=== PATIENT | male | born 1990 | race Asian ===

== ENCOUNTER 2019-11-15 05:30 | Emergency (ER) | payer MEDICAID ==
[~2019-11-15] VITALS: Ht 175.3 cm; Wt 68.5 kg
[2019-11-15 05:37] VITALS: BP 143/83
[2019-11-15] MEDS ORDERED: ONDANSETRON 4 MG/2 ML VIAL IVP ONE ×2 (05:50→06:00)
[2019-11-15] MEDS ORDERED: NACL 0.9% 1,000 ML IV ONE (05:50)
--- NOTE | 2019-11-15 06:00 | NUR ---
PT HAS BEEN HAVING ABD PAIN, N/V/D X 1 WEEK. C/O ABD CRAMPING AND ACHING 11/14, AND HAS HAD NO APPETITE. PT JUST MOVED HERE A WEEK AGO FROM [place] AND SAYS EVER SINCE BEING HERE HE'S BEEN FEELING SICK. PT AFEBRILE, NO SOB, NO COUGH. ABD FLAT, BOWELS SOUNDS WNL. NKA NO HX
[2019-11-15] MEDS ORDERED: MORPHINE SULFATE 4 MG/ML SYR ONE (06:04)
[2019-11-15] MEDS ORDERED: MORPHINE SULFATE 2 MG/ML SYR IVP ONE (06:15)
--- NOTE | 2019-11-15 06:15 | NUR ---
PT ADVISED WE NEED URINE SPECIMEN, UNABLE TO PROVIDE ONE AT THIS TIME. SPECIMEN CUP AT BEDSIDE
[2019-11-15 06:28] LABS: BASOPHILS # (AUTO) 0.1 K/uL (0.00-0.22); BASOPHILS % (AUTO) 0.4 % (0.0-2.0); EOSINOPHILS # (AUTO) 0.1 K/uL (0-0.4); EOSINOPHILS % (AUTO) 0.6 % (0.0-4.0); HEMATOCRIT 40.8 % (36-52); HEMOGLOBIN 13.9 g/dL (12.0-18.0); LYMPHOCYTES # (AUTO) 3.4 K/uL (2.0-11.5); LYMPHOCYTES % (AUTO) 26.3 % (20.5-51.1); MEAN CORPUSCULAR HEMOGLOBIN 29 pg (27-31); MEAN CORPUSCULAR HGB CONC 34 g/dL (33-37); MEAN CORPUSCULAR VOLUME 84.7 fL (80-94); MONOCYTES # (AUTO) 1.4 K/uL (0.8-1.0); MONOCYTES % (AUTO) 10.7 % (1.7-9.3); NEUTROPHILS # (AUTO) 7.9 K/uL (1.8-7.7); PLATELET COUNT (AUTO) 249 K/uL (140-450); RED BLOOD CELL COUNT(AUTO) 4.81 MIL/uL (4.20-6.10); RED CELL DISTRIBUTION WIDTH 13.1 % (11.6-13.7); WHITE BLOOD COUNT (AUTO) 12.7 K/uL (4.8-10.8)
--- NOTE | 2019-11-15 06:29 | NUR ---
IV ESTABLISHED, LABS COLLECTED AND WALKED DOWN TO LAB
--- NOTE | 2019-11-15 06:58 | NUR ---
1 L NS FINISHED INFUSING, PT STILL UNABLE TO PROVIDE UA. NOTIFIED
--- NOTE | 2019-11-15 06:58 | NUR ---
CALLED LAB REGARDING CHEMISTRY PANEL RESULTS, STATED THEY ARE RUNNING NOW AND RESULTS SHOULD BE UP IN FEW MINUTES.
[2019-11-15 07:05] LABS: ALBUMIN 4.4 g/dL (3.4-5.0); ANION GAP 17.1 (8-16); ASPARTATE AMINOTRANSFERASE 21 U/L (15-37); CARBON DIOXIDE 25.4 mmol/L (21-32); CHLORIDE 94 mmol/L (98-107); GFR ARICAN-AMERICAN 114 mL/min (>90); GLUCOSE 79 mg/dL (74-106); POTASSIUM 3.5 mmol/L (3.5-5.1); SODIUM SERUM 133 mmol/L (136-145); TOTAL BILIRUBIN 0.5 mg/dL (0.0-1.0); UREA NITROGEN, BLOOD 13 mg/dL (7-18)
--- NOTE | 2019-11-15 07:07 | NUR ---
Pt report given to HARVEY JOHN. Transfer of care at this time.
--- NOTE | 2019-11-15 07:08 | NUR ---
Received report from ALVARO Mora. Transfer of care at this time.
--- NOTE | 2019-11-15 07:10 | NUR ---
Pt states he is still unable to give urine at this time. Pt given warm blanket, positioned for comfort. Denies nausea. VSS
[2019-11-15] MEDS ORDERED: NACL 0.9% 1,000 ML IV SCH (07:25)
--- NOTE | 2019-11-15 07:47 | NUR ---
Pt given small amount of crackers for PO challenge. Will re-evaluate pt
--- NOTE | 2019-11-15 08:09 | NUR ---
Pt ambulated to restroom, urine collected and taken to lab.
[2019-11-15 08:23] LABS: APPEARANCE,URINE CLEAR (CLEAR); BILIRUBIN,URINE 2+ (NEGATIVE); BLOOD, URINE NEGATIVE (NEGATIVE); COLOR,URINE YELLOW (YELLOW); LEUKOCYTE ESTERASE ,URINE NEGATIVE (NEGATIVE); NITRITE, URINE NEGATIVE (NEGATIVE); UGLUCOSE NEGATIVE (NEGATIVE)
[2019-11-15 09:01] VITALS: BP 133/81
--- NOTE | 2019-11-15 09:01 | NUR ---
Patient discharged with v/s stable. Written and verbal after care instructions given and explained. Patient alert, oriented and verbalized understanding of instructions. Ambulatory with steady gait. All questions addressed prior to discharge. ID band removed. Patient advised to follow up with PMD. Rx of Zofran 4mg ODT given. Patient educated on indication of medication including possible reaction and side effects. Opportunity to ask questions provided and answered.
--- NOTE | 2019-11-15 09:01 | NUR ---
IV discontinued and 2x2 gauze placed to IV site
== END 2019-11-15 09:01 | disposition home or self-care (01) ==
LOC: MED 05:30
DX: E86.0 Dehydration (principal); R19.7 Diarrhea, unspecified; R11.10 Vomiting, unspecified
CPT/HCPCS: 36415; 80053; 81003; 82550; 82553; 85025; 96361; 96374; 96375; 99284; J2405; J7030; J2270